=== PATIENT | male | born 1955 | race Caucasian/White ===

== ENCOUNTER 2018-03-18 12:26 | Emergency (ER) | payer OTHER ==
[~2018-03-18] VITALS: Ht 175.3 cm; Wt 77.1 kg
[2018-03-18] MEDS ORDERED: CRESTOR10 MG PO (12:37)
[2018-03-18] MEDS ORDERED: LOPRESSOR50 PO (12:37)
[2018-03-18 13:05] LABS: ABSOLUTE EOSINOPHILS 0.2 thou/uL (0.0-0.7); ABSOLUTE LYMPHOCYTES 1.3 thou/uL (0.8-5.3); ABSOLUTE MONOCYTES 0.5 thou/uL (0.0-1.2); ABSOLUTE NEUTROPHILS 5.9 thou/uL (1.6-8.1); BASOPHILS 0.6 %; EOSINOPHILS 2.1 %; HEMATOCRIT 40.9 % (42.0-52.0); HEMOGLOBIN 13.8 gm/dL (14.0-18.0); LYMPHOCYTES 16.7 %; MCH 31.2 pg (26.0-34.0); MCHC 33.8 g/dL (28.0-37.0); MCV 92.5 fL (80.0-100.0); MONOCYTES 5.8 %; NUCLEATED RBCS 0 /100WBC; PLATELET COUNT* 243 thou/uL (150-400); POLYS 74.8 %; RBC 4.42 mil/uL (4.50-6.00); RDW-CV 13.5 % (10.5-14.5); WBC 7.9 thou/uL (4.0-11.0)
[2018-03-18 13:16] LABS: CALCIUM 8.8 mg/dL (8.5-10.1)
[2018-03-18 13:21] LABS: ALBUMIN 3.7 g/dL (3.4-5.0); TOTAL BILIRUBIN 0.7 mg/dL (<0.1-1.0); TOTAL PROTEIN 7.2 g/dL (6.4-8.2)
--- NOTE | 2018-03-18 14:56 | EKG ---
[place] [address] ELECTROCARDIOGRAM REPORT Name: DEON JOHNSON Room: [facility]#: [id number] Admission: 03/18/18 Attend Phys: Discharge: Date of : 51 Report #: [id number] THIS REPORT FOR: //name// [facility] ED Test Date: 2018-03-18 Test Time: 12:36:25 Pat Name: DEON JOHNSON Department: Room: Gender: Neurosurgery Physician: : [id number] Requested By: Anuja Maharaj Order Number: [id number] Reading MD: Low Muir Measurements Intervals [place] Rate: 59 P: 50 DC: 135 QRS: 15 QRSD: 98 T: 27 QT: 408 QTc: 405 Interpretive Statements Sinus rhythm Compared to ECG 05/04/2006 12:06:41 No significant changes Electronically Signed On 03-18-2018 14:55:56 CDT by Low Muir [email or web address] <ELECTRONICALLY SIGNED> By: Low Muir MD, [facility] 03/18/18 1455 1236 1236 Low Muir MD, FACC /EPI
[2018-03-18 17:00] VITALS: BP 132/87
== END 2018-03-18 17:00 | disposition short-term general hospital (02) ==
LOC: M.ERS 12:26
PROVIDERS: Personal Emergency Response Attendant
DX: S27.0XXA Traumatic pneumothorax, initial encounter (principal); J98.2 Interstitial emphysema; Z88.1 Allergy status to other antibiotic agents; Z88.0 Allergy status to penicillin; Z88.8 Allergy status to other drugs, medicaments and biological substances; V80.010A Animal-rider injured by fall from or being thrown from horse in noncollision accident, initial encounter; Y93.89 Activity, other specified; Y92.89 Other specified places as the place of occurrence of the external cause; Y99.8 Other external cause status

== ENCOUNTER → 2019-07-10 | Outpatient (CLI) | payer MEDICARE, OTHER ==
[~2019-07-10] MED LIST: CRESTOR10 MG PO; LOPRESSOR50 PO
[2019-07-10 12:02] LABS: ABSOLUTE EOSINOPHILS 0.2 thou/uL (0.0-0.7); ABSOLUTE LYMPHOCYTES 1.4 thou/uL (0.8-5.3); ABSOLUTE MONOCYTES 0.5 thou/uL (0.0-1.2); ABSOLUTE NEUTROPHILS 4.7 thou/uL (1.6-8.1); BASOPHILS 0.7 %; EOSINOPHILS 2.7 %; HEMATOCRIT 41.5 % (42.0-52.0); HEMOGLOBIN 14.1 gm/dL (14.0-18.0); LYMPHOCYTES 19.8 %; MCH 31.1 pg (26.0-34.0); MCHC 33.9 g/dL (28.0-37.0); MCV 91.6 fL (80.0-100.0); MONOCYTES 7.5 %; MPV 7.7 fl. (7.2-11.1); NUCLEATED RBCS 0 /100WBC; PLATELET COUNT* 242 thou/uL (150-400); POLYS 69.3 %; RBC 4.53 mil/uL (4.50-6.00); RDW-CV 13.8 % (10.5-14.5); WBC 6.9 thou/uL (4.0-11.0)
[2019-07-10 12:24] LABS: ALBUMIN 3.7 g/dL (3.4-5.0); CALCIUM 8.8 mg/dL (8.5-10.1); POTASSIUM 4.2 mmol/L (3.5-5.1); TOTAL BILIRUBIN 0.4 mg/dL (<0.1-1.0); TOTAL PROTEIN 7.2 g/dL (6.4-8.2)
== END ==
LOC: M.RAD 11:25
PROVIDERS: Radiology Radiation Oncology
DX: C81.01 Nodular lymphocyte predominant Hodgkin lymphoma, lymph nodes of head, face, and neck (principal)